=== PATIENT | female | born 1985 | race Caucasian/White ===

== ENCOUNTER 2016-03-05 07:40 | Observation (INO) | payer OTHER ==
[2016-03-05] MEDS ORDERED: TERBUTALINE SULFATE 1 MG/ML VIAL SC ONE (08:00)
[2016-03-05] MEDS ORDERED: TERBUTALINE SULFATE 1 MG/ML VIAL IV ONE (08:14)
[2016-03-05] MEDS ORDERED: TERBUTALINE SULFATE 1 MG/ML VIAL ONE (08:17)
[2016-03-05 08:37] LABS: % IMMATURE GRANULYOCYTES 0.2 % (0.0-1.1); ABSOLUTE IMMATURE GRANULOCYTES 0.02 10^3/uL (0.00-0.10); ADD DIFF? NO; ADD MORPH? NO; ADD SCAN? NO; ATYPICAL LYMPHOCYTE FLAG 20 (0-99); FRAGMENT RBC FLAG 0 (0-99); HEMATOCRIT 36.7 % (38.0-47.0); HEMOGLOBIN 12.1 g/dL (12.6-16.3); LEFT SHIFT FLG 0 (0-99); LIPEMIA HEMOLYSIS FLAG 80 (0-99); MEAN CELL HEMOGLOBIN 33.2 pg (27.9-34.1); MEAN CELL VOLUME 100.5 fL (81.5-99.8); MEAN PLATELET VOLUME 9.5 fL (8.7-11.7); PLATELET CLUMPS FLAG 30 (0-99); PLATELET COUNT 169 10^3/uL (150-400); RED BLOOD CELL COUNT 3.65 10^6/uL (4.18-5.33); RED CELL DISTRIBUTION WIDTH 13.6 % (11.5-15.2)
--- NOTE | 2016-03-05 08:53 | SOAPPROG ---
[id number] 08:49 FWB reassuring by NST. Discussed , will schedule at 39 weeks. Discussed signs of labor, rupture of membranes, placental abruption. F/u in 1 week for routine ob appt. Subjective: 30 yo @ 37 0/7, here for ECV for breech presentation, patient having mild contractions, no vaginal bleeding or loss of fluid. Patient counseled on risks of ECV including bleeding, placental abruption, , rupture of membranes, heart rate deceleration requiring emergent . The patient understands these risks and agrees to the procedure. Objective: Laboratory Results 03/05/16 08:22 VSS NSt 130s, mod variability, +accels, no decels US confirms manoj breech, LOW 13 cm. TOCO irregular contractions Attempted forward roll (maternal right) x 3, no movement NST reassuring after procedure with heart rate of 130s, moderate variability, + accels. ICD10 Worksheet Patient Problems: Problems Problem Status Diagnosed Breech presentation Acute
== END 2016-03-05 09:30 | disposition home or self-care (01) ==
LOC: FLD 07:40
PROVIDERS: ADMIT Obstetrics & Gynecology; ATTEND Obstetrics & Gynecology
PROC: 10S0XZZ Reposition Products of Conception, External Approach (ICD-10-PCS; principal; 2016-03-05)
DX: O32.1XX0 Maternal care for breech presentation, not applicable or unspecified (principal); Z3A.39 39 weeks gestation of pregnancy
CPT/HCPCS: J3105

== ENCOUNTER 2016-03-19 05:39 | Inpatient (IN) | payer OTHER ==
[2016-03-19] MEDS ORDERED: LR 500 ML IV ONE (05:55)
[2016-03-19] MEDS ORDERED: CITRIC ACID/SODIUM CITRATE 30 ML UDCUP PO ONE (05:55)
[2016-03-19] MEDS ORDERED: ceFAZolin 2 GM/DEXTROSE 100 ML IV ONE (05:55)
[2016-03-19] MEDS ORDERED: LR 1,000 ML IV SCH (06:00)
[2016-03-19] MEDS ORDERED: MISOPROSTOL 200 MCG TAB ONE (07:18)
[2016-03-19 07:50] LABS: % IMMATURE GRANULYOCYTES 0.3 % (0.0-1.1); ABSOLUTE IMMATURE GRANULOCYTES 0.02 10^3/uL (0.00-0.10); ADD DIFF? NO; ADD MORPH? NO; ADD SCAN? NO; ATYPICAL LYMPHOCYTE FLAG 20 (0-99); FRAGMENT RBC FLAG 0 (0-99); HEMATOCRIT 33.4 % (38.0-47.0); HEMOGLOBIN 11.3 g/dL (12.6-16.3); LEFT SHIFT FLG 0 (0-99); LIPEMIA HEMOLYSIS FLAG 90 (0-99); MEAN CELL HEMOGLOBIN 33.4 pg (27.9-34.1); MEAN CELL HEMOGLOBIN CONCENTR. 33.8 g/dL (32.4-36.7); MEAN CELL VOLUME 98.8 fL (81.5-99.8); MEAN PLATELET VOLUME 9.6 fL (8.7-11.7); PLATELET CLUMPS FLAG 0 (0-99); PLATELET COUNT 169 10^3/uL (150-400); RED BLOOD CELL COUNT 3.38 10^6/uL (4.18-5.33); RED CELL DISTRIBUTION WIDTH 13.5 % (11.5-15.2)
[2016-03-19] MEDS ORDERED: PROMETHAZINE HCL 25 MG/ML INJ IVP PRN (07:50)
[2016-03-19] MEDS ORDERED: SIMETHICONE 80 MG TAB CHEW PO PRN (07:50)
[2016-03-19] MEDS ORDERED: fentaNYL 100 MCG/2 ML INJ ONE (08:20)
[2016-03-19] MEDS ORDERED: morphINE PF 5 MG/10 ML INJ ONE (08:20)
[2016-03-19] MEDS ORDERED: PHENYLEPHRINE HCL 100 MCG/ML SYR ONE (08:30)
[2016-03-19] MEDS ORDERED: ONDANSETRON 4 MG/2 ML VIAL ONE (08:43)
[2016-03-19] MEDS ORDERED: DEXAMETHASONE 4 MG/ML VIAL ONE (08:43)
[2016-03-19] MEDS ORDERED: OXYTOCIN 100 UNITS/10 ML VIAL ONE (08:52)
[2016-03-19] MEDS ORDERED: PHENYLEPHRINE 10 MG/ML SDV ONE (08:54)
--- NOTE | 2016-03-19 09:04 | OBPROC ---
- Delivery Pre-op Diagnoses: Primary C/S for breech presentation Post-op Diagnoses: Primary C/S for breech presentation Procedure: Primary Surgeon: Lexis Downey De Icer Kit Assembler: Ctae Saenz Anesthesiologist: Lang Coleman Casting House Worker/HYDRAULIC REPAIRER: Jenelle Marti Anesthesia: Spinal Complications: None IV Fluid (ml): 1,800 EBL: 800 - Info A Delivery Date: 03/19/16 Delivery Time: 08:44 Sex of Infant: Male Score (1 Min): 8 Score (5 Min): 9
[2016-03-19] MEDS ORDERED: ONDANSETRON 4 MG/2 ML VIAL IVP PRN (09:18)
[2016-03-19] MEDS ORDERED: MEPERIDINE 25 MG/ML SYR IVP PRN (09:18)
[2016-03-19] MEDS ORDERED: fentaNYL 100 MCG/2 ML INJ IVP PRN (09:18)
[2016-03-19] MEDS ORDERED: LABETALOL HCL 5 MG/ML 20 ML MDV IVP PRN (09:18)
[2016-03-19] MEDS ORDERED: PHENYLEPHRINE HCL 100 MCG/ML SYR IVP PRN (09:18)
[2016-03-19] MEDS ORDERED: METOCLOPRAMIDE 10 MG/2 ML VIAL IVP PRN (09:18)
[2016-03-19] MEDS ORDERED: NALOXONE HCL 0.4 MG/ML INJ IVP PRN (09:18)
--- NOTE | 2016-03-19 09:42 | GOP ---
[f rep st] OPERATIVE REPORT DATE OF OPERATION: 03/19/2016 SURGEON: Lexis Sales MD FUR SORTER: Cate Castillo, certified nurse securities research analyst. ANESTHESIA: Spinal. PREOPERATIVE DIAGNOSIS: Intrauterine at 39 and 0/7 weeks gestation with breech presentation. POSTOPERATIVE DIAGNOSIS: Intrauterine at 39 and 0/7 weeks gestation with breech presentation. PROCEDURE PERFORMED: Primary low transverse section. FINDINGS: Viable male infant, Apgars 8 and 9, in manoj breech presentation. Normal uterus, fallopian tubes, and ovaries. SPECIMENS: None. ESTIMATED BLOOD LOSS: 800 mL. INDICATIONS: Lauren is a 30-year-old, G3, P1 female who had a fetus in breech presentation. She underwent an unsuccessful external cephalic version and agreed to delivery. DESCRIPTION OF PROCEDURE: The patient was taken to the operating room where she was prepped and draped in normal sterile fashion in the dorsal supine position with leftward tilt. A surgical time-out was performed verifying the patient's name, date of , planned procedure and site. A Pfannenstiel skin incision was made with a scalpel and carried through to the underlying fascia. The fascia was incised in the midline and extended laterally. The superior aspect of the fascia was grasped with Marion clamps. The rectus muscles dissected off bluntly and with the Bovie cautery. The inferior aspect of the fascia was grasped with Marion clamps, and the rectus muscles dissected off bluntly and with the Bovie cautery. The peritoneum was identified and entered in bluntly. The peritoneum was divided. The bladder blade was placed. The vesicouterine peritoneum was incised with the Metzenbaum scissors, and the bladder flap was created digitally. The bladder blade was replaced. The uterus was incised. The uterine incision was extended laterally with the bandage scissors. The was delivered. The cord was clamped and cut. Cord blood was obtained. The infant was handed to the nurse practitioner. The placenta was delivered spontaneously. The uterus was exteriorized and cleared of all clots and debris. The uterine incision was reapproximated with 0 Monocryl in a running, locked fashion in 2 layers. The uterus was returned to the abdomen. The gutters were cleared of all clots and debris. The uterine incision was reinspected and noted to be hemostatic. The subfascial spaces were inspected and noted to be hemostatic. The fascia was reapproximated with 0 Vicryl in a running fashion. The subcutaneous tissue was irrigated and closed with 3-0 Vicryl, and the skin was closed with 4-0 Monocryl. All counts were correct x2. COMPLICATIONS: None. OUTCOME: Stable to recovery room. /[id number]/MODL MTDD
[2016-03-19] MEDS ORDERED: KETOROLAC 30 MG/1 ML SDV ONE (10:16)
[2016-03-19] MEDS: KETOROLAC 30 MG/1 ML SDV IVP SCH ×3 (10:40→23:56)
[2016-03-20] MEDS: KETOROLAC 30 MG/1 ML SDV IVP SCH (05:50)
--- NOTE | 2016-03-20 11:00 | SOAPPROG ---
SOAP Progress Note Assessment/Plan: Assessment: 30 yo s/p ltcs for breech, pod 1, doing well. Plan: 03/20/16 10:59 Rh negative, rhogam indicated. Rubella immune. Routine postop care. Subjective: 30 yo s/p ltcs for breech, pod 1, doing well, ambulating, voiding, pain well controlled. Objective: Vital Signs Temp Pulse Resp BP Pulse Ox 36.7 C 75 16 103/69 97 03/20/16 08:40 03/20/16 08:40 03/20/16 08:40 03/20/16 08:40 03/20/16 08:40 Laboratory Results 03/19/16 07:40 03/19/16 03/20/16 03/21/16 05:59 05:59 05:59 Intake Total 4300 Output Total 4100 Balance 200 Physical Exam - Physical Exam General Appearance: no apparent distress Abdomen: non-tender Skin: warm/dry Extremities: non-tender Neuro/Psych: oriented x 3 (incision-clean, dry, intact) ICD10 Worksheet Patient Problems: Problems Problem Status Diagnosed Breech presentation Acute
[2016-03-20] MEDS: DOCUSATE SODIUM 100 MG CAP PO PRN ×2 (12:14→20:03)
[2016-03-20] MEDS: IBUPROFEN 600 MG TAB PO PRN ×2 (12:14→18:21)
[2016-03-20] MEDS: HYDROCODONE/APAP 5/325 TAB PO PRN ×2 (15:30→20:03)
[2016-03-21] MEDS: HYDROCODONE/APAP 5/325 TAB PO PRN ×3 (00:08→22:02)
[2016-03-21] MEDS: IBUPROFEN 600 MG TAB PO PRN ×4 (00:08→18:08)
[2016-03-21 08:08] VITALS: RESP 16
--- NOTE | 2016-03-21 08:43 | SOAPPROG ---
SOAP Progress Note Assessment/Plan: Assessment: 30 y.o. s/p primary C/S for breech presentation. / post-op day # 2. Recovering well. Incision CDI. . Plan: Routine post-op/ care. infant. Anticipate discharge tomorrow. 03/21/16 08:40 Subjective: Reports feeling well with good pain control and minimal vaginal bleeding. Feeling fatigued today, so anticipate discharge to home tomorrow. well. Eating and drinking without n/v. Has been out of bed ad trino without vertigo. Incision CDI. Appropriate mood and good support system. Objective: Vital Signs Temp Pulse Resp BP Pulse Ox 37.1 C 78 16 112/80 95 03/21/16 08:00 03/21/16 08:00 03/21/16 08:00 03/21/16 08:00 03/21/16 08:00 Laboratory Results 03/19/16 07:40 03/20/16 03/21/16 03/22/16 05:59 05:59 05:59 Intake Total 4300 Output Total 4100 1950 Balance 200 -1950 - Time Spent With Patient Time Spent With Patient: 20 minutes - Pending Discharge Pending Discharge Within 24 Hours: Yes Pending Discharge Date: 03/22/16 Pending Discharge Time: 11:00 Physical Exam - Physical Exam General Appearance: WD/WN, alert, no apparent distress EENT: normal ENT inspection Neck: non-tender, full range of motion, normal inspection Respiratory: chest non-tender, lungs clear Cardiac/Chest: regular rate, rhythm Abdomen: non-tender, soft Pelvic Exam: normal external exam Rectal: deferred Back: Normal inspection Skin: normal color, warm/dry Lymphatic: no adenopathy Extremities: normal range of motion, non-tender Neuro/Psych: alert, normal mood/affect, oriented x 3 ICD10 Worksheet Patient Problems: Problems Problem Status Diagnosed Breech presentation Acute
[2016-03-21] MEDS: IRON POLYSAC/IRON HEME 28 MG TAB PO SCH ×2 (12:09→22:02)
[2016-03-21] MEDS: DOCUSATE SODIUM 100 MG CAP PO PRN (22:02)
[2016-03-22] MEDS: IBUPROFEN 600 MG TAB PO PRN ×3 (00:04→11:55)
[2016-03-22] MEDS: HYDROCODONE/APAP 5/325 TAB PO PRN ×3 (02:08→11:08)
--- NOTE | 2016-03-22 08:09 | SOAPPROG ---
SOAP Progress Note Assessment/Plan: Assessment: POD #3 low transverse section for breech Stable afebrile Plan: Ready for discharge home Ibuprofen, Colace and Tyler Follow up in two weeks no driving two weeks Pelvic rest Return precautions given 03/22/16 08:03 03/22/16 08:09 Subjective: Doing well tolerating diet, +flatus and ready to go home. breast feeding well and no pain Objective: Vital Signs Temp Pulse Resp BP Pulse Ox 36.1 C 96 16 113/78 97 03/21/16 20:05 03/21/16 20:05 03/21/16 20:05 03/21/16 20:05 03/21/16 20:05 Laboratory Results 03/19/16 07:40 03/21/16 03/22/16 03/23/16 05:59 05:59 05:59 Output Total 1950 Balance -1950 - Pending Discharge Pending Discharge Within 24 Hours: No Pending Discharge Date: 03/22/16 Physical Exam - Physical Exam General Appearance: WD/WN, alert, no apparent distress Respiratory: chest non-tender, lungs clear, normal breath sounds Cardiac/Chest: normal peripheral pulses, regular rate, rhythm Peripheral Pulses: 2+: carotid (R), carotid (L), femoral (R), femoral (L), dorsalis-pedis (R), dorsalis-pedis (L) Abdomen: normal bowel sounds, non-tender, soft, other (Incision Clean/dry and intact with steri strips Fundus firm 3 cm below umb) Pelvic Exam: deferred Rectal: deferred Skin: normal color, warm/dry Extremities: normal range of motion, non-tender, normal inspection, normal capillary refill Neuro/Psych: no motor/sensory deficits, alert, normal mood/affect, oriented x 3 ICD10 Worksheet Patient Problems: Problems Problem Status Diagnosed Breech presentation Acute
--- NOTE | 2016-03-22 08:18 | OBGCSDC ---
General Delivery Information - General Info : 3 Para: 1 Delivery Date: 03/19/16 Delivery Physician/CNM: Lexis Downey Admission Date: 03/19/16 Labs: Patient ABO/Rh A NEGATIVE 03/19/16 11:30 Hct 33.4 % (38.0-47.0) L 03/19/16 07:40 - [place] Info Infant A Sex of : Male Score (1 Min): 8 Score (5 Min): 9 - Delivery IUP (Weeks): 39 weeks Indications for Current Section: Abnormal Lie Intra-op Complications: None EBL: 800 Anesthesia: Spinal Discharge Information - Discharge Information Condition: Good Instruction/Follow Up: See Instruction Sheet, Two Weeks Discharge Date: 03/22/16 Dictated: No
[2016-03-22] MEDS: DOCUSATE SODIUM 100 MG CAP PO PRN (08:58)
[2016-03-22] MEDS: IRON POLYSAC/IRON HEME 28 MG TAB PO SCH (08:58)
[2016-03-22 10:53] VITALS: BP 98/67; PULSE 82; TEMP 97.3; O2SAT 95
== END 2016-03-22 13:30 | disposition home or self-care (01) | DRG 766 ==
LOC: FLD 05:39 → FOB 11:18
PROVIDERS: ADMIT Obstetrics & Gynecology; ATTEND Obstetrics & Gynecology
PROC: 10D00Z1 Extraction of Products of Conception, Low, Open Approach (ICD-10-PCS; principal; 2016-03-19)
DX: O64.1XX0 Obstructed labor due to breech presentation, not applicable or unspecified (principal); O26.893 Other specified pregnancy related conditions, third trimester; Z67.91 Unspecified blood type, Rh negative; Z3A.39 39 weeks gestation of pregnancy; Z37.0 Single live birth
CPT/HCPCS: G0463; J0690; J1100; J1885; J2274; J2370; J2405; J2590; J3010